=== PATIENT | female | born 2000 | race Caucasian/White ===

== ENCOUNTER → 2023-02-01 | Day surgery (SDC) | payer BC, OTHER ==
[~2023-02-01] MED LIST: ACETAMINOPHEN-1 EAC4 PO; BUPIVACAINE HCL 0.5% 10ML MPF VIAL INJ ONE; DEXAMETHASONE SOD PHOS INJ 4 MG/ML SDV ONE; FENTANYL CITRATE/PF 100MCG/2 ML INJ ONE; LACTATED RINGER'S 1,000 ML ONE; LAMOTRIGINE100 MG PO; LEXAPRO20 MG PO; LIDOCAINE HCL 2% LOCAL INJ 5 ML SDV VIAL INJ ONE; MEPERIDINE HCL INJ 25 MG/ML VIAL ONE; MIDAZOLAM HCL 2 MG/2 ML VIAL ONE; MUPIROCIN 2% OINT 22 GM TUBE ONE; NEXIUM20 MG PO; ONDANSETRON HCL INJ 2MG/ML 2ML 2 MG/ML VIAL ONE; POVIDONE IODINE 0.05% 0.05 % ML PO ONE; PROPOFOL IV EMULSION 10 MG/ML 20 ML VIAL ONE; SEVOFLURANE INHAL SOLN 250 ML PEN BTL ONE; TRAZODONE HCL50 MG PO
[2023-02-01 09:03] VITALS: TEMP 97.4
[2023-02-01 10:05] VITALS: BP 145/85; PULSE 64; RESP 18; O2SAT 100
== END | disposition home or self-care (01) ==
LOC: OR 05:33
PROVIDERS: ATTEND Plastic Surgery
DX: M67.431 Ganglion, right wrist (principal); K21.9 Gastro-esophageal reflux disease without esophagitis; F41.9 Anxiety disorder, unspecified; F32.A Depression, unspecified; F17.290 Nicotine dependence, other tobacco product, uncomplicated; Z79.899 Other long term (current) drug therapy
CPT/HCPCS: 25111; 36415; 84702; 88304; J0690; J1100; J2001; J2175; J2250; J2405; J2704; J3010; J7121